=== PATIENT | female | born 1990 | race Caucasian/White ===

== ENCOUNTER → 2017-05-19 | Outpatient (CLI) | payer OTHER | LOC: M SMT 13:15 | PROVIDERS: ATTEND Obstetrics & Gynecology | DX: Z13.79 Encounter for other screening for genetic and chromosomal anomalies (principal) ==

== ENCOUNTER → 2017-05-26 | Outpatient (REF) | payer OTHER | LOC: M LAB REF 19:33 | PROVIDERS: ATTEND Obstetrics & Gynecology | DX: R87.613 High grade squamous intraepithelial lesion on cytologic smear of cervix (HGSIL) (principal) ==

== ENCOUNTER → 2017-07-19 | Outpatient (CLI) | payer OTHER ==
[2017-07-19 13:05] LABS: MEAN CORPUSCULAR HEMOGLOBIN 28.3 pg (27.0-33.0); MEAN CORPUSCULAR HGB CONC 33.2 g/dl (32.0-36.5); MEAN CORPUSCULAR VOLUME 85.5 fl (80.0-96.0); PLATELET COUNT, AUTOMATED 240 10^3/uL (150-450); RED CELL DISTRIBUTION WIDTH 13.2 % (11.5-14.5); WHITE BLOOD COUNT 13.2 10^3/uL (4.0-10.0)
== END ==
LOC: M SMT 10:39
PROVIDERS: ATTEND Obstetrics & Gynecology
DX: Z34.82 Encounter for supervision of other normal pregnancy, second trimester (principal); Z3A.00 Weeks of gestation of pregnancy not specified

== ENCOUNTER 2017-08-26 22:14 | Outpatient (CLI) | payer OTHER | END 2017-08-27 01:27 | disposition home or self-care (01) | LOC: M LDO 22:14 | DX: O99.89 Other specified diseases and conditions complicating pregnancy, childbirth and the puerperium (principal); R10.2 Pelvic and perineal pain; Z3A.29 29 weeks gestation of pregnancy | CPT/HCPCS: 59025 ==

== ENCOUNTER 2017-10-06 07:31 | Outpatient (CLI) | payer OTHER | END 2017-10-06 10:47 | disposition home or self-care (01) | LOC: M LDO 07:31 | DX: O26.893 Other specified pregnancy related conditions, third trimester (principal); Z3A.35 35 weeks gestation of pregnancy; O36.8130 Decreased fetal movements, third trimester, not applicable or unspecified; R10.2 Pelvic and perineal pain; R87.613 High grade squamous intraepithelial lesion on cytologic smear of cervix (HGSIL) | CPT/HCPCS: 59025 ==

== ENCOUNTER → 2017-10-13 | Outpatient (REF) | payer OTHER | LOC: M LAB REF 12:52 | DX: Z34.83 Encounter for supervision of other normal pregnancy, third trimester (principal) ==

== ENCOUNTER 2017-10-17 05:32 | Inpatient (IN) | payer OTHER ==
[2017-10-17] MEDS: LR 1,000 ML IV (06:45)
[2017-10-17] MEDS: OXYTOCIN DRIP 30 UNITS in APPROPRIATE DILUENT 1 EA IV ×2 (06:45→11:06)
[2017-10-17 06:46] LABS: HEMATOCRIT 38.1 % (36.0-47.0); HEMOGLOBIN 13.1 g/dl (12.0-16.0); MEAN CORPUSCULAR HEMOGLOBIN 28.3 pg (27.0-33.0); MEAN CORPUSCULAR HGB CONC 34.4 g/dl (32.0-36.5); MEAN CORPUSCULAR VOLUME 82.3 fl (80.0-96.0); PLATELET COUNT, AUTOMATED 195 10^3/uL (150-450); RED BLOOD COUNT 4.63 10^6/uL (4.00-5.40); RED CELL DISTRIBUTION WIDTH 14.4 % (11.5-14.5); WHITE BLOOD COUNT 14.5 10^3/uL (4.0-10.0)
[2017-10-17] MEDS: BETAMETHASONE SOLUSPAN 6MG/ML INJ 5ML (J0702) IM (06:46)
[2017-10-17] MEDS ORDERED: FENTANYL 2MCG/ML ROPIVACAINE 0.2% IN 0.9% NACL 200ML IVBAG As Ordered (08:22)
[2017-10-17] MEDS: PRENATAL VITAMINS CHEWABLE TABLET PO (09:00)
[2017-10-17] MEDS ORDERED: FENTANYL/ROPIVACAINE/NACL BAG 200 ML EPIDURAL (09:30)
[2017-10-17] MEDS ORDERED: LACTATED RINGER'S 1000 ML IV (09:30)
[2017-10-17] MEDS ORDERED: NALOXONE INJ 0.4 MG/1 ML VIAL (J2310) IV (09:30)
[2017-10-17] MEDS ORDERED: EPIDURAL COMMENT XX (09:30)
[2017-10-17] MEDS ORDERED: diphenhydrAMINE INJ 50MG/ML VIAL (J1200) IV (09:30)
[2017-10-17] MEDS ORDERED: REFRIGERATOR IV KEYS XX (09:30)
[2017-10-17] MEDS ORDERED: EPIDURAL/PCA KEYS XX (09:30)
[2017-10-17] MEDS ORDERED: ePHEDrine SULFATE 25 MG/5 ML(5MG/ML) SYRINGE IV (09:30)
[2017-10-17] MEDS ORDERED: ONDANSETRON 4MG/2ML VIAL (J2405) IV ×2 (09:30→11:15)
[2017-10-17] MEDS ORDERED: METHYLERGONOVINE MALEATE 0.2 MG TAB PO (11:15)
[2017-10-17] MEDS ORDERED: ANUSOL HC CREAM 30GM TOP (11:15)
[2017-10-17] MEDS ORDERED: DOCUSATE SODIUM 100 MG CAP PO (11:15)
[2017-10-17] MEDS ORDERED: MOM 30ML SUSPENSION UDC PO (11:15)
[2017-10-17] MEDS ORDERED: DIBUCAINE 1% OINTMENT 30GM TOP (11:15)
[2017-10-17] MEDS: LACTATED RINGER'S 1000 ML IV (14:31)
[2017-10-17] MEDS: RHOGAM 300 MCG (1500 IU) INJ (J2790) IM (14:32)
[2017-10-17] MEDS: MEASLES,MUMPS,RUBELLA VACCINE INJ (MMR-II) (90707) SC (14:33)
[2017-10-17] MEDS: IBUPROFEN 800 MG TAB PO ×2 (16:17→23:54)
[2017-10-17] MEDS: ACETAMINOPHEN 500 MG TAB PO (18:33)
[2017-10-18] MEDS: PRENATAL VITAMINS CHEWABLE TABLET PO (08:20)
[2017-10-18] MEDS: ACETAMINOPHEN 500 MG TAB PO ×2 (11:44→18:12)
[2017-10-18] MEDS: IBUPROFEN 800 MG TAB PO (20:35)
[2017-10-19] MEDS: ACETAMINOPHEN 500 MG TAB PO (07:28)
[2017-10-19] MEDS: PRENATAL VITAMINS CHEWABLE TABLET PO (07:28)
== END 2017-10-19 12:00 | disposition home or self-care (01) | DRG 775 ==
LOC: M LDO 05:32 → M LDI 06:01 → M OBS 12:41
PROVIDERS: Advanced Practice Midwife
PROC: 10E0XZZ Delivery of Products of Conception, External Approach (ICD-10-PCS; principal; 2017-10-17)
DX: O42.013 Preterm premature rupture of membranes, onset of labor within 24 hours of rupture, third trimester (principal); Z37.0 Single live birth; Z3A.36 36 weeks gestation of pregnancy; Z91.013 Allergy to seafood; F17.200 Nicotine dependence, unspecified, uncomplicated; O99.334 Smoking (tobacco) complicating childbirth; O69.82X0 Labor and delivery complicated by other cord entanglement, without compression, not applicable or unspecified; R85.613 High grade squamous intraepithelial lesion on cytologic smear of anus (HGSIL)

== ENCOUNTER 2017-12-09 07:01 | Day surgery (SDC) | payer OTHER ==
[2017-12-09 07:36] LABS: HEMATOCRIT 43.8 % (36.0-47.0); HEMOGLOBIN 14.5 g/dl (12.0-15.5); MEAN CORPUSCULAR HEMOGLOBIN 27.4 pg (27.0-33.0); MEAN CORPUSCULAR HGB CONC 33.1 g/dl (32.0-36.5); MEAN CORPUSCULAR VOLUME 82.8 fl (80.0-96.0); PLATELET COUNT, AUTOMATED 254 10^3/uL (150-450); RED BLOOD COUNT 5.29 10^6/uL (4.00-5.40); RED CELL DISTRIBUTION WIDTH 14.4 % (11.5-14.5); WHITE BLOOD COUNT 11.8 10^3/uL (4.0-10.0)
[2017-12-09 07:51] LABS: CONTROL LINE HCG INT CTR LINE PRESENT; HCG, SERUM QUALITATIVE NEGATIVE (NEGATIVE)
[2017-12-09] MEDS ORDERED: ROCURONIUM BROMIDE 50 MG/5 ML VIAL As Ordered (08:05)
[2017-12-09] MEDS ORDERED: ONDANSETRON 4MG/2ML VIAL (J2405) As Ordered (08:05)
[2017-12-09] MEDS ORDERED: dexameTHASONE 4 MG/ML 1ML VIAL (J1100) As Ordered (08:05)
[2017-12-09] MEDS ORDERED: GLYCOPYRROLATE INJ 0.2 MG/ML 2 ML VIAL As Ordered (08:05)
[2017-12-09] MEDS ORDERED: PROPOFOL 200 MG/20 ML VIAL As Ordered (08:05)
[2017-12-09] MEDS ORDERED: NEOSTIGMINE 10 MG/10 ML VIAL (J2710) As Ordered (08:05)
[2017-12-09] MEDS ORDERED: KETOROLAC 60 MG/2 ML VIAL (J1885) As Ordered (08:05)
[2017-12-09] MEDS ORDERED: LIDOCAINE 2% INJ 100 MG/5 ML SDV (FOR ANES.) As Ordered (08:05)
[2017-12-09] MEDS ORDERED: fentaNYL 100 MCG/2 ML INJECTION (J3010) As Ordered (08:06)
[2017-12-09] MEDS ORDERED: MIDAZOLAM INJ 2 MG/2 ML VIAL (J2250) As Ordered (08:06)
[2017-12-09] MEDS: LR 1,000 ML IV (08:34)
[2017-12-09] MEDS: BUPIVACAINE HCL 0.25% 30 ML VIAL As Ordered (09:19)
[2017-12-09] MEDS ORDERED: LR 1,000 ML IV (10:00)
[2017-12-09] MEDS ORDERED: ONDANSETRON 4MG/2ML VIAL (J2405) IV (10:00)
[2017-12-09] MEDS ORDERED: fentaNYL 100 MCG/2 ML INJECTION (J3010) IV (10:00)
[2017-12-09] MEDS ORDERED: PERCOCET 5MG/325MG TAB PO (10:00)
[2017-12-09] MEDS ORDERED: PERCOCET 5MG/325MG TAB As Ordered (10:10)
[2017-12-09] MEDS: PERCOCET 5MG/325MG TAB PO ×2 (10:11→11:00)
[2017-12-09] MEDS ORDERED: KETOROLAC 30 MG/ML VIAL (J1885) IV (14:00)
== END 2017-12-09 11:35 | disposition home or self-care (01) ==
LOC: M SDC 07:01
DX: Z30.2 Encounter for sterilization (principal); Z72.0 Tobacco use; Z91.013 Allergy to seafood
CPT/HCPCS: 58671

== ENCOUNTER → 2018-02-13 | Outpatient (REF) | payer OTHER | LOC: M LAB REF 13:26 | DX: R87.613 High grade squamous intraepithelial lesion on cytologic smear of cervix (HGSIL) (principal) ==

== ENCOUNTER → 2018-12-13 | Outpatient (REF) | payer OTHER ==
[~2018-12-13] MED LIST: IBUP-1114 PO; MAPA500T2 PO; PERCOCET PO; PRENTAB9 PO
== END ==
LOC: M LAB REF 17:32
PROVIDERS: ATTEND Obstetrics & Gynecology
DX: R87.613 High grade squamous intraepithelial lesion on cytologic smear of cervix (HGSIL) (principal)

== ENCOUNTER → 2019-07-11 | Outpatient (REF) | payer OTHER ==
[2019-07-17 14:07] LABS: HPV HYBRID CAPTURE II Negative (Negative)
== END ==
LOC: M LAB REF 08:13
PROVIDERS: ATTEND Obstetrics & Gynecology
DX: Z12.4 Encounter for screening for malignant neoplasm of cervix (principal)
CPT/HCPCS: 87624; G0123

== ENCOUNTER → 2020-06-12 | Outpatient (REF) | payer OTHER | LOC: M PLALAB 12:37 | PROVIDERS: ATTEND Obstetrics & Gynecology | DX: Z12.4 Encounter for screening for malignant neoplasm of cervix (principal); R87.610 Atypical squamous cells of undetermined significance on cytologic smear of cervix (ASC-US) | CPT/HCPCS: 87624; G0123 ==

== ENCOUNTER → 2020-06-12 | Outpatient (CLI) | payer BC, OTHER ==
--- NOTE | 2020-06-12 14:04 | REP ---
INDICATION: ABNORMAL UTERINE BLEEDING COMPARISON: 05/06/2010, 04/01/2011 TECHNIQUE: Transabdominal pelvic ultrasound followed by transvaginal examination for better evaluation of the endometrium and adnexa with color Doppler evaluation of the ovaries. FINDINGS: Bladder is unremarkable and measures 7.1 x 6.6 x 3.6 cm. Normal anteverted uterus measures 7.7 x 4.4 x 5.0 cm. The endometrial complex measures 9.0 mm thickness. No discrete uterine or endometrial abnormalities are appreciated. Bilateral ovaries are normal in appearance and vascularity without evidence for torsion. Right ovary measures 3.2 x 1.9 x 2.7 cm and includes 2.1 cm physiologic cyst/dominant follicle; R I = 0.49. Left ovary measures 1.8 x 1.2 x 1.8 cm; R I = 0.55. No pelvic fluid or adnexal mass lesion. IMPRESSION: Essentially normal pelvic ultrasound. <Electronically signed by Orlando Yadav > 06/12/20 [id number]
== END ==
LOC: M WHC 12:46
PROVIDERS: ATTEND Obstetrics & Gynecology
DX: N93.9 Abnormal uterine and vaginal bleeding, unspecified (principal)